=== PATIENT | female | born 1995 | race Two or more races ===

== ENCOUNTER 2020-05-25 13:26 | Inpatient (IN) | payer OTHER ==
[~2020-05-25] VITALS: Ht 162.6 cm; Wt 123.4 kg
[2020-05-25] MEDS ORDERED: ZYRTEC10 M3 PO (14:39)
[2020-05-25] MEDS ORDERED: PRENATAL CAPLE1 EAC1 PO (14:39)
== END 2020-05-28 17:32 | disposition home or self-care (01) | DRG 807 ==
LOC: OB/GYN 13:26 → LDR 13:26 → OB/GYN 05-26 15:17
PROVIDERS: ADMIT Obstetrics & Gynecology; ATTEND Obstetrics & Gynecology
PROC: 10E0XZZ Delivery of Products of Conception, External Approach (ICD-10-PCS; principal; 2020-05-25)
PROC: 3E0P7VZ Introduction of Hormone into Female Reproductive, Via Natural or Artificial Opening (ICD-10-PCS; 2020-05-25)
PROC: 3E033VJ Introduction of Other Hormone into Peripheral Vein, Percutaneous Approach (ICD-10-PCS; 2020-05-25)
PROC: 10907ZC Drainage of Amniotic Fluid, Therapeutic from Products of Conception, Via Natural or Artificial Opening (ICD-10-PCS; 2020-05-25)
PROC: 4A1HXCZ Monitoring of Products of Conception, Cardiac Rate, External Approach (ICD-10-PCS; 2020-05-25)
DX: O48.0 Post-term pregnancy (principal); Z37.0 Single live birth; Z3A.40 40 weeks gestation of pregnancy; Z20.828 Contact with and (suspected) exposure to other viral communicable diseases